=== PATIENT | female | born 1970 | race Hispanic/Latino ===

== ENCOUNTER → 2017-08-06 13:28 | Outpatient (CLI) | payer OTHER, SELFPAY ==
--- NOTE | 2017-08-06 | DI.US.S_ITS ---
PROCEDURE: US PELVIC COMPLETE INDICATIONS: PELVIC AND PERINEAL PAIN PRESENCE OF IUD TECHNIQUE: Real-time scanning was performed of the pelvic organs, with image documentation. Additional endovaginal scanning was necessary due to incomplete visualization of the adnexal and endometrial structures by transabdominal scanning. COMPARISON: None. FINDINGS: Transabdominal scanning: Limited scanning through the kidneys shows no hydronephrosis. No pathologic free abdominal or pelvic fluid. Endovaginal scanning: Uterus: Uterus is normal in size at 5.6 x 8.1 x 10.4 cm. The endometrium measures 7.4 mm in combined thickness. Scattered uterine fibroids are present, including a midline posterior intramural 2.0 cm fibroid in the midline anterior intramural 1.8 cm fibroid. Smaller fibroids are scattered within the myometrium elsewhere. Ovaries: The right ovary is not seen, the left ovary measures 5.6 x 6.4 x 8.0 cm and there is a complex avascular cystic structure at the left ovary measuring up to 5.4 x 4.3 x 6.6 cm with several internal septations but no abnormal mural nodularity or elevated vascularity at its borders. IMPRESSION: Normal-appearing endometrial lining, several scattered uterine fibroids as discussed. The dominant abnormality is a large mildly to moderately complex cystic mass in the left ovary injuring up to 5.4 x 4.3 x 6.6 cm. Recommend followup in 6-8 week subsequent pelvic ultrasound to assess for resolution. A persistent cystic structure at this size may represent a cystic malignant or benign neoplasm requiring subsequent gynecologic followup. Dictated by: Anthony Bobo M.D. on 08/06/2017 at 15:04 Approved by: Anthony Bobo M.D. on 08/06/2017 at 15:07
== END ==
PROVIDERS: Visit Provider Obstetrics & Gynecology
DX: N83.202 Unspecified ovarian cyst, left side (principal); R10.2 Pelvic and perineal pain
CPT/HCPCS: 76830; 76856

== ENCOUNTER → 2022-05-21 15:18 | Outpatient (CLI) | payer OTHER, SELFPAY ==
--- NOTE | 2022-05-21 | DI.NM.S_ITS ---
PROCEDURE: NM EXERCISE TREADMILL NON NUC COMPARISON: None. INDICATIONS: Chest pain FINDINGS: The patient exercised for 9 minutes and 39 seconds, reaching 101% of maximum predicted heart rate and 10.1 METs, CARLA -23%. Appropriate BP response to exercise (resting BP 115/70mmHg, max BP 140/80mmHg). No angina, no ST changes, and no ectopy during exercise or recovery. IMPRESSION: Low risk, normal treadmill ECG only stress test with good exercise tolerance (CARLA -23%). Dictated by: Anil Leon MD on 05/22/2022 at 12:45 Approved by: Anil Leon MD on 05/22/2022 at 12:47
== END ==
PROVIDERS: Referring Provider Internal Medicine Cardiovascular Disease; Visit Provider Internal Medicine Cardiovascular Disease
DX: R07.9 Chest pain, unspecified (principal)
CPT/HCPCS: 93017

== ENCOUNTER 2023-06-22 12:31 | Emergency (ER) | payer OTHER, SELFPAY ==
[2023-06-22 12:35] VITALS: BP 129/81; PULSE 89; RESP 16; TEMP 36.7; O2SAT 99; BMI 27.3
--- NOTE | 2023-06-22 12:41 | DI.RAD.S_ITS ---
PROCEDURE: XR CHEST 1V INDICATIONS: chest pain TECHNIQUE: One view of the chest was acquired. COMPARISON: None. FINDINGS: Surgical changes and devices: None. Lungs and pleura: Lungs are clear. No pleural effusions or pneumothorax. Mediastinum: Mediastinal contours appear normal. Heart size is normal. Bones and chest wall: No suspicious bony lesions. Overlying soft tissues appear unremarkable. IMPRESSION: No acute cardiopulmonary abnormality is seen. Approved by: Arian Ellis M.D. on 06/22/2023 at 12:32
[2023-06-22 13:06] LABS: Add Manual Diff / Slide Review NO; Basophils Absolute Auto 100 /uL (0-100); Eosinophils Absolute Auto 100 /uL (0-450); Eosinophils Percent Auto 1.2 % (2-4); Hematocrit 42.1 % (36-46); Hemoglobin 14.3 g/dL (12.0-16.0); Lymphocytes Absolute Auto 2800 /uL (1100-4500); Lymphocytes Percent Auto 41.5 % (25-40); Mean Corpuscular HGB Conc 33.8 % (30-36); Mean Corpuscular Hemoglobin 30.1 PG (26-34); Mean Corpuscular Volume 88.9 fL (80-100); Monocytes Absolute Auto 400 /uL (0-900); Monocytes Percent Auto 6.3 % (3-14); Neutrophils Absolute Auto 3400 /uL (1500-7000); Platelet Count 324 X10^3/uL (150-400); Red Blood Cell Count 4.74 X10^6/uL (4.0-5.2); Red Cell Distribution Width 13.8 % (11.6-14.8); White Blood Cell Count 6.8 X10^3/uL (4.5-11.0)
[2023-06-22 13:09] LABS: HEMOLYSIS < 15 (0-50)
[2023-06-22 13:11] LABS: Prothrombin Time 11.1 SECONDS (9.4-12.5)
[2023-06-22 13:14] LABS: PTT Partial Thromboplastin Tim 38 SECONDS (25.1-36.5)
[2023-06-22 13:16] LABS: Alanine Aminotransferase 25 IU/L (<35); Albumin 4.4 g/dL (3.5-5.0); Albumin Globulin Ratio 1.5 (1.0-2.8); Alkaline Phosphatase 75 U/L (38-126); Aspartate Aminotransferase 23 IU/L (14-36); BUN Creatinine Ratio 19.7 (6-22); Bilirubin Total 0.6 mg/dL (0.2-1.3); Blood Urea Nitrogen 14 mg/dL (7-17); Calcium 9.7 mg/dL (8.4-10.2); Carbon Dioxide 26 mmol/L (22-32); Chloride 108 mmol/L (98-107); Creatine Kinase 148 U/L (30-135); Estimated Glomerular Filt Rate > 60 mL/min (>60); Globulin 2.9 g/dL (1.7-4.1); Glucose 90 mg/dL (70-100); Lipase 95 U/L (23-300); Magnesium 2.2 mg/dL (1.6-2.3); Potassium 3.8 mmol/L (3.4-5.1); Sodium 139 mmol/L (137-145); Total Protein 7.3 g/dL (6.3-8.2)
--- NOTE | 2023-06-22 13:30 | ED_ITS ---
HPI - Extremity Problem General Chief complaint: Extremity Problem,Nontraumatic Stated complaint: sent by [facility] lt arm is cold pof hole in heart Time Seen by Provider: 06/22/23 12:44 Source: patient Mode of arrival: Ambulatory History of Present Illness HPI Narrative: 52-year-old female with history of PFO presents with complaint of 3 days of which she describes his pain feeling like it is in the muscles of her left arm from shoulder to fingertips and feeling cold her on the inside. She states the outside feeling on her skin feels the same, she has not noticed swelling, color changes, she denies any weakness. She does not notice any other pins or needles or paresthesias just take temperature sensation change. Patient states nothing seems to make it better or worse. It has been persistent for the last 3 days was more painful overnight. She states she does walk regularly she uses arm bands but has not had any other new changes, trauma or injuries that she is aware of. She states she checked with a pulse ox on both fingers bilaterally then was 98%. Patient states no chest pain, no shortness of breath, no fevers or chills. No neck pain, no other symptoms otherwise. Patient states no daily prescription, prior appendectomy, prior dental bone graft. No tobacco, alcohol or recreational drugs. Related Data Previous Rx's Medication Instructions Recorded gabapentin 300 mg capsule 300 mg PO TID #30 caps 06/22/23 Allergies Allergy/AdvReac Type Severity Reaction Status Date / Time No Known Drug Allergies Allergy Verified 06/22/23 12:35 Review of Systems Review of Systems ROS Unobtainable: All systems reviewed & are unremarkable except as noted in HPI and below Patient History Social History Smoking Status: Never smoker Smoking Status: Never smoker alcohol intake frequency: holidays/special occasions only Substance Use Type: does not use Exam Narrative Exam Narrative: GENERAL: Alert and oriented x three, well-appearing female in mild distress. HEENT: Head normocephalic, atraumatic, EOMI, pupils reactive, face symmetric, moist mucous membranes NECK: Supple, full range of motion, no cervical vertebral tenderness. CARDIOVASCULAR: Regular rate and rhythm without murmurs, rubs or gallops. RESPIRATORY: Breath sounds equal bilaterally, no wheezes rales or rhonchi. ABDOMEN: Soft, nontender. Normoactive bowel sounds all 4 quadrants. No guarding or rebound, rigidity, no mass : No CVA tenderness EXTREMITIES: Normal range of motion, no clubbing or edema. Neurovascularly intact. 2+ radial pulses bilateral upper extremities. No swelling, erythema or skin changes no pallor or cyanosis. Cap refill less than 5 seconds in his fingers. Full range of motion. NEUROLOGICAL: Cranial nerves II through XII grossly intact. Moving all extremities SKIN: Warm, dry, no petechiae, no rashes or lesions. Initial Vital Signs Initial Vital Signs: Vital Signs Temperature 98.1 F 06/22/23 12:35 Pulse Rate 89 06/22/23 12:35 Respiratory Rate 16 06/22/23 12:35 Blood Pressure 129/81 06/22/23 12:35 Pulse Oximetry 99 06/22/23 12:35 Oxygen Delivery Method Room Air 06/22/23 12:35 Course Orders Ordered: ED Orders 06/22/23 12:38 Lactate (Lactic Acid) Stat 06/22/23 12:41 XR chest 1V Stat EKG-12 Lead Stat 06/22/23 12:54 Complete Blood Count AUTO DIFF Stat Comprehensive Metabolic Panel Stat Lipase Stat Magnesium Stat PTT Partial Thromboplastin Bhargav Stat Prothrombin Time INR Stat Troponin & CK Cardiac Panel Stat 06/22/23 13:32 US periph venous up extrem lt Stat Discontinued Medications Ibuprofen (Ibuprofen 400 Mg Tablet) 800 mg PO NOW ONE Stop: 06/22/23 14:01 Last Admin: 06/22/23 14:43 Dose: 800 mg Documented By: KW Vital Signs Vital signs: Vital Signs - 8 hr 06/22/23 12:35 06/22/23 15:26 Temperature 98.1 F Pulse Rate 89 74 Respiratory Rate 16 16 Blood Pressure 129/81 118/78 Pulse Oximetry 99 97 Oxygen Delivery Method Room Air Room Air MDM - Extremity (Nontraumatic) Lab Data 06/22/23 12:54 06/22/23 12:54 Labs: Lab Results 06/22/23 06/22/23 Range/Units 12:38 12:54 WBC 6.8 (4.5-11.0) X10^3/uL RBC 4.74 (4.0-5.2) X10^6/uL Hgb 14.3 (12.0-16.0) g/dL Hct 42.1 (36-46) % MCV 88.9 (80-100) fL MCH 30.1 (26-34) PG MCHC 33.8 (30-36) % RDW 13.8 (11.6-14.8) % Plt Count 324 (150-400) X10^3/uL Neut % (Auto) 50.0 (50-75) % Lymph % (Auto) 41.5 H (25-40) % Taliaferro % (Auto) 6.3 (3-14) % Eos % (Auto) 1.2 L (2-4) % Baso % (Auto) 1.0 (0-2) % Neut # (Auto) 3400 (3519-3979) /uL Lymph # (Auto) 2800 (7933-3203) /uL Taliaferro # (Auto) 400 (0-900) /uL Eos # (Auto) 100 (0-450) /uL Baso # (Auto) 100 (0-100) /uL PT 11.1 (9.4-12.5) SECONDS INR 1.0 (0.9-1.3) APTT 38 H (25.1-36.5) SECONDS Sodium 139 (137-145) mmol/L Potassium 3.8 (3.4-5.1) mmol/L Chloride 108 H (98-107) mmol/L Carbon Dioxide 26 (22-32) mmol/L BUN 14 (7-17) mg/dL Creatinine 0.71 (0.52-1.04) mg/dL Estimated GFR > 60 (>60) mL/min BUN/Creatinine Ratio 19.7 (6-22) Glucose 90 (70-100) mg/dL Lactate 1.0 (0.7-2.1) mmol/L Calcium 9.7 (8.4-10.2) mg/dL Magnesium 2.2 (1.6-2.3) mg/dL Total Bilirubin 0.6 (0.2-1.3) mg/dL AST 23 (14-36) IU/L ALT 25 (<35) IU/L Alkaline Phosphatase 75 (38-126) U/L Total Creatine Kinase 148 H (30-135) U/L Troponin I < 0.012 (0.01-0.034) ng/mL Total Protein 7.3 (6.3-8.2) g/dL Albumin 4.4 (3.5-5.0) g/dL Globulin 2.9 (1.7-4.1) g/dL Albumin/Globulin Ratio 1.5 (1.0-2.8) Lipase 95 (23-300) U/L Imaging Data Chest x-ray: Radiologist's Impression: [address] [address] XRay Report Signed Patient: Angeline Betancourt MR#: [id number] : 1970 Acct:[id number] Age/Sex: 52 / F Date of Service: 06/22/23 Loc: ED Accession Number: [id number] Procedure: XR chest 1V Ordering Provider: Melissa Flores D.O. PROCEDURE: XR CHEST 1V INDICATIONS: chest pain TECHNIQUE: One view of the chest was acquired. COMPARISON: None. FINDINGS: Surgical changes and devices: None. Lungs and pleura: Lungs are clear. No pleural effusions or pneumothorax. Mediastinum: Mediastinal contours appear normal. Heart size is normal. Bones and chest wall: No suspicious bony lesions. Overlying soft tissues appear unremarkable. IMPRESSION: No acute cardiopulmonary abnormality is seen. Approved by: Arian Ellis M.D. on 06/22/2023 at 12:32 US - DVT: Radiologist's Impression: [place] [address] Ultrasound Report Signed Patient: Angeline Betancourt MR#: [id number] : 1970 Acct:[id number] Age/Sex: 52 / F Date of Service: 06/22/23 Loc: ED Accession Number: [id number] Procedure: US periph venous up extrem lt Ordering Provider: Melissa Flores D.O. PROCEDURE: US PERIPH VENOUS UP EXTREM LT INDICATIONS: arm feels cold, hx pfo, normal pulses TECHNIQUE: Real-time imaging, as well as color and pulse Doppler interrogation, was performed of the upper extremity deep veins from the inferior neck to the antecubital fossa. COMPARISON: None. FINDINGS: The internal jugular vein, visualized portions of the subclavian vein, axillary, and brachial veins are free of intraluminal thrombus. Where physically possible, the veins are normally compressible. Color and pulse Doppler demonstrate normal intraluminal flow, with expected phasicity and pulsatility. Additional scanning of the cephalic and basilic veins of the superficial system demonstrates normal compressibility, without thrombus. IMPRESSION: No findings of upper extremity deep venous thrombosis can be seen. Dictated by: Arian Ellis M.D. on 06/22/2023 at 13:58 Approved by: Arian Ellis M.D. on 06/22/2023 at 13:59 ECG Data Attestation EKG: I personally reviewed and interpreted this ECG as follows: Interpretation: Sinus rhythm rate 82 DE 144 QRS 76 QTC of 432. No acute ST elevation depression noted. MDM Narrative Medical decision making narrative: This is a 52-year-old female with complaint of feeling like her left arm is colder than the right for the past 3 days but she states it feels internal in the muscle and on the outer portion of the arm not the inner portion. Patient denies fevers chills no cold cough congestion no chest pain. She denies paresthesias otherwise but states it is a sensation change. Nothing seems to make it better or worse. She does have a known PFO. She has 2+ radial pulses and appears to be without any arterial issues examination, cap refill is normal there is no swelling erythema, pallor cyanosis or other changes. No weakness or other movement changes. Labs show a CK of 148 but negative troponin otherwise appropriate CBC, coags CMP with a negative lactate. EKG shows no acute change. Chest x-ray is negative. DVT ultrasound is negative. Discussed with patient suspect may have a little bit of paresthesias secondary to nerve entrapment as her pain is on the outer portion arm and not on the inner portion with no other acute exam changes. Shows no acute neurologic changes requiring imaging of her C-spine today. We will try a short course of gabapentin, discussed return precautions need for follow-up. Discharge Plan Departure Patient Disposition: Home Clinical Impression: Paresthesia and pain of left extremity Activity Restrictions/Additional Instructions: Your imaging and workup today overall is reassuring. Please follow up with your physician for recheck. Sometimes you can get sensation changes done your arm secondary to nerve impingement or involvement that can sometimes be neck. You may take Tylenol up to a 1000 mg every 6 hours as pain. You can try gabapentin 1 tablet every 8 hours as needed for symptoms. Prescription printed. 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 Prescriptions: New gabapentin 300 mg capsule 300 mg PO TID Qty: 30 0RF Referrals: ProviderBret [Primary Care Provider] - Stand Alone Forms: Patient Portal/API
[2023-06-22 13:38] LABS: Troponin I < 0.012 ng/mL (0.01-0.034)
[2023-06-22] MEDS: IBUPROFEN 400 MG TABLET 800 MG PO (14:43)
[2023-06-22 15:26] VITALS: BP 118/78; PULSE 74; RESP 16; O2SAT 97
== END 2023-06-22 15:26 | disposition home or self-care (01) ==
PROVIDERS: Emergency Provider Emergency Medicine
DX: M79.602 Pain in left arm (principal); R20.2 Paresthesia of skin
CPT/HCPCS: 36415; 71045; 80053; 82550; 83605; 83690; 83735; 84484; 85025; 85610; 85730; 93005; 93010; 93971; 99284